=== PATIENT | male | born 1990 | race Caucasian/White ===

== ENCOUNTER 2023-06-23 02:23 | Day surgery (SDC) | payer BC, SELFPAY ==
[2023-06-19 13:29] VITALS: BMI 36.0
--- NOTE | 2023-06-19 13:29 | PC.NURSE ---
Addendum entered by Gorge Seymour RN 06/19/23 13:35: Nothing to eat or drink after 430am. Original Note: Report to the Outpatient Waiting Room, entrance under the green pavilion located off [facility], at time _1030_ on date _[id number]_. Planned Procedure Time: _1230_. Time changes happen often and if your time is changed the preop area will call you the afternoon before. - You and your visitor will be asked to self-screen and do not enter if you have any COVID symptoms. - A mask is optional within the hospital at this time. Patients may have clear liquids (water, carbonated beverages, clear teas, apple juice) until 3 hours prior to surgery with a maximum of 20 ounces. - No food from midnight until time of surgery Take the following medications with a SIP of water the morning of surgery: ____None DO NOT STOP ANY OF YOUR OTHER PRESCRIPTION MEDICATIONS PRIOR TO SURGERY ?EXCEPT THE FOLLOWING Medications to discontinue per physician None Date to take last dose Please no make-up, nail nepali, hairspray, perfume, deodorant, or body powder the day of surgery. No jewelry (including any body piercings) or valuables the day of surgery, leave them at home. Please take a shower or bath the night before, or the morning of, surgery with an antibacterial soap. Wear comfortable, loose fitting clothing. - Jewelry must be removed prior to entering the operating room. Rings and piercings that are not removed may be cut off. - The hospital will not accept responsibility for valuables. - Please leave all valuables, including medications, at home the day of surgery. If you are going home after surgery, a licensed refuse driver must drive you home. - NO public transportation without another adult if you receive anesthesia. - We recommend that an adult stay with you for 24 hours following discharge. - We also recommend that you do not drive, make important decision, drink alcoholic beverages, or take any drugs that were not prescribed by your health care provider for at least 24 hours after your discharge time. Follow any additional instructions given to you from your surgeon. If you or anyone in your household have experienced Covid symptoms in the past week, please notify your surgeon or the nurse liaison at the phone number below for possible testing. Telephone instructions given to _Navi_and asked if any additional questions and then verbalized understanding. Patient advised to call surgeon office or pre surgery nurse liaison [phone] if any additional questions.
--- NOTE | 2023-06-23 06:59 | PM.HPGS ---
History of Present Illness History of Present Illness Chief complaint: local swelling left hand Narrative: Patient seen and examined in pre-operative holding area. No interval change in medical history or symptoms. Patient recalls previous discussion of benefits and alternatives to procedure. Continues to desire to proceed with left small finger mass excision . Reviewed procedure, post-op expectations and risks including but not limited to bleeding, infection, injury to tendon/nerve/vessel, decreased hand function, stiffness, RSD, no change or worsening of symptoms, recurrence. I discussed the possible use of assistants and their participation in the case. Patient stated understanding and signed the consent form wishing to proceed. Review of Systems Review of Systems: All systems reviewed & are unremarkable except as noted in HPI and below PMFSH Past Medical History Medical History (Updated 05/01/23 @ 15:35 by Anna Acosta MD) Anxiety Family History Family History (Updated 04/20/23 @ 14:52 by Nicky Duarte MA) Father Hypertension Mother History of ETOH abuse Grandparent Hypertension Social History Social History (Updated 04/20/23 @ 15:00 by Nicky Duarte MA) Smoking status: Former smoker Tobacco type: e-cigarettes/vaping Alcohol intake: current Drinks per week: 6 Alcohol use details: Beer Weekends Substance use: current Substance use type: marijuana Other substance usage details: bi monthly Lack of Transportation: No Lack of Food: Never True Current Housing: I Have Housing Concerned About Future Housing: No Difficulty Paying Gas/Electric Bills: No Difficulty Paying for Meds: No Currently Unemployed: No Education: High School Diploma/GED Difficulty w/ Childcare or Family Care: No Living arrangements: with family Gender identity (if verbalized by the patient): Male Spiritual care concerns: No Agree to blood products: Yes Meds Home Medications and Allergies Home Medications Medication Instructions Recorded Confirmed Type tramadol 50 mg tablet 50 mg PO Q6H PRN pain #20 tabs 06/23/23 Rx Allergies Allergy/AdvReac Type Severity Reaction Status Date / Time No Known Allergies Allergy Verified 06/23/23 10:20 Exam Narrative: unchanged Assessment and Plan Assessment and plan (1) Localized swelling, mass and lump, left upper limb: Code(s): R22.32 - Localized swelling, mass and lump, left upper limb Status: Acute Assessment and Plan: as above
--- NOTE | 2023-06-23 06:59 | W.PM.PROC2 ---
Procedure Note - Detailed Date of Procedure 06/23/23 Pre-op Diagnosis left small finger mass Post-op Diagnosis Same Procedure Performed left small finger mass excision Surgeon Anna Acosta MD Anesthesia MAC Description of Procedure INFORMED CONSENT: The patient was seen and examined and marked in the pre-op area.? The patient signed the consent form. PROCEDURE IN DETAIL:The patient taken back to OR on the stretcher in supine position. Time out performed with anesthesia, surgeon and staff agreeing on patient's name site and surgery to be performed SCDs were placed on the lower extremities and inflated. A tourniquet was placed on {left} upper extremity and antibiotics given IV After anesthesia administered sedation I injected {4}cc 1%lido and 0.5% marcaine plain for digital block in the palm The?{left upper extremity}?was prepped and draped in sterile fashion the??{left upper extremity} was? exsanguinated with Esmarch bandage proximal to the massand tourniquet inflated to 250mmHg I proceeded with making incision over his previous surgical scar over the mass on the volar aspect left small finger over middle phalanx through skin and dermis with a 15 blade scalpel. A radially based skin flap was elevated with littler scissors above the mass coming from flexor tendon sheath. I proceeded with dissection around mass off flexor tendon sheath and surrounding deep subq tissue and it was noted that the mass was consistent with sebaceous cyst.. I was able to identify what appeared to be the punctum or puncture wound causing cyst and this was excised as well with 15 blade scalpel. I irrigated with normal saline and closed skin with 4-0 chromic. A dressing of xeroform, 4x4, jorge luis, and lindsey was applied after the tourniquet was let down noting the finger was warm and well perfused. Complications - none EBL- 0cc Disposition - home in stable conditions [facility] [place] Billing Surgery - Charge Forward: Surgery Billing ([id number])
[2023-06-23 10:00] VITALS: BP 138/79; PULSE 78; RESP 18; TEMP 36.5; O2SAT 99
[2023-06-23] MEDS: LACTATED RINGERS 1,000 ML 30 ML IV CONT (10:00)
--- NOTE | 2023-06-23 10:50 | P.PNAN_ITS ---
Anes - Eval Pre Procedure Procedure: Operation Date: 06/23/23 12:15 Proposed Procedures p Excision Left Small Finger Mass - Anna Acosta MD Date/Time: 06/23/23 10:50 Surgeon: Dave Pre Op Diagnosis: local swelling left hand Patient Data Age: 32 Gender: M Height: 1.8 m Weight: 114.9 kg Last Vital Signs Temp 36.5 C 06/23/23 10:00 Pulse 78 06/23/23 10:00 Resp 18 06/23/23 10:00 BP 138/79 06/23/23 10:00 Pulse Ox 99 06/23/23 10:00 O2 Del Method Room Air 06/23/23 10:00 Allergies Allergy/AdvReac Type Severity Reaction Status Date / Time No Known Allergies Allergy Verified 06/23/23 10:20 Home Medications Medication Instructions Recorded Confirmed Type tramadol 50 mg tablet 50 mg PO Q6H PRN pain #20 tabs 06/23/23 Rx Patient hx anesthesia problems: none Family hx anesthesia problems: none Results Review: All pre-operative results and documents have been reviewed as part of the pre-operative evaluation. [facility] Past Medical History Medical History Anxiety Family History Family History Father Hypertension Mother History of ETOH abuse Grandparent Hypertension Social History Social History Smoking status: Former smoker Tobacco type: e-cigarettes/vaping Alcohol intake: current Drinks per week: 6 Alcohol use details: Beer Weekends Substance use: current Substance use type: marijuana Other substance usage details: bi monthly Lack of Transportation: No Lack of Food: Never True Current Housing: I Have Housing Concerned About Future Housing: No Difficulty Paying Gas/Electric Bills: No Difficulty Paying for Meds: No Currently Unemployed: No Education: High School Diploma/GED Difficulty w/ Childcare or Family Care: No Living arrangements: with family Gender identity (if verbalized by the patient): Male Spiritual care concerns: No Agree to blood products: Yes Exam Day of Procedure 06/23/23 10:50
--- NOTE | 2023-06-23 10:55 | WPDANESEPPF ---
Anes - Initial Pre Proc Eval Procedure: Operation Date: 06/23/23 12:15 Proposed Procedures p Excision Left Small Finger Mass - Anna Acosta MD Date/Time: 06/23/23 10:55 Surgeon: Anna Acosta MD Pre Op Diagnosis: local swelling left hand Patient Data Age: 32 Gender: M Height: 1.8 m Weight: 114.9 kg Last Vital Signs Temp 36.5 C 06/23/23 10:00 Pulse 78 06/23/23 10:00 Resp 18 06/23/23 10:00 BP 138/79 06/23/23 10:00 Pulse Ox 99 06/23/23 10:00 O2 Del Method Room Air 06/23/23 10:00 Allergies Allergy/AdvReac Type Severity Reaction Status Date / Time No Known Allergies Allergy Verified 06/23/23 10:20 Home Medications Medication Instructions Recorded Confirmed Type tramadol 50 mg tablet 50 mg PO Q6H PRN pain #20 tabs 06/23/23 Rx Patient hx anesthesia problems: none Family hx anesthesia problems: none Results Review: All pre-operative results and documents have been reviewed as part of the pre-operative evaluation. [facility] Past Medical History Medical History Anxiety Family History Family History Father Hypertension Mother History of ETOH abuse Grandparent Hypertension Social History Social History Smoking status: Former smoker Tobacco type: e-cigarettes/vaping Alcohol intake: current Drinks per week: 6 Alcohol use details: Beer Weekends Substance use: current Substance use type: marijuana Other substance usage details: bi monthly Lack of Transportation: No Lack of Food: Never True Current Housing: I Have Housing Concerned About Future Housing: No Difficulty Paying Gas/Electric Bills: No Difficulty Paying for Meds: No Currently Unemployed: No Education: High School Diploma/GED Difficulty w/ Childcare or Family Care: No Living arrangements: with family Gender identity (if verbalized by the patient): Male Spiritual care concerns: No Agree to blood products: Yes Anes - Eval Final PreProcedure Day of Procedure 06/23/23 10:55 Patient weight: obese Heart: regular rate and rhythm Lungs: decreased breath sounds Airway: Mallampati scale class II Neurological: alert and oriented Last oral intake: >/= 8 hours ASA classification: III Emergent: no Anesthetic plan: proceed Anesthesia type and monitoring: general GIVS and standard monitoring Results Review: All pre-operative results and documents have been reviewed as part of the pre-operative evaluation. Informed Consent: The patient's anesthetic plan and its attendant risks and benefits were discussed with the patient/family/POA. Questions were solicited and answers provided to the satisfaction of the patient/family/POA.
[2023-06-23] MEDS: ceFAZolin 2 GM/D5W 50 ML 2 GM/50 ML BAG IVPB (11:05)
[2023-06-23] MEDS: LIDOCAINE HCL 1% LOCAL INJ 20 ML VIAL 5 ML INFILTRATE (11:23)
[2023-06-23 11:28] VITALS: BP 129/73; PULSE 72; RESP 16; O2SAT 97
[2023-06-23 12:00] VITALS: BP 130/66; PULSE 65; RESP 18
== END 2023-06-23 12:12 | disposition home or self-care (01) ==
PROVIDERS: PCP Nurse Practitioner Adult Health; Visit Provider Plastic Surgery
PROC: (CPT 11422; principal; 2023-06-23 12:15)
DX: L72.0 Epidermal cyst (principal); Z87.891 Personal history of nicotine dependence; F12.90 Cannabis use, unspecified, uncomplicated
CPT/HCPCS: 11422; 88304; A9270; J0690; J2250; J2704; J7120